=== PATIENT | female | born 1995 | race African-American/Black ===

== ENCOUNTER 2019-12-22 23:21 | Outpatient (CLI) | payer OTHER, SELFPAY ==
[2019-12-22 01:31] VITALS: BP 124/59; PULSE 99
== END 2019-12-22 23:22 | disposition home or self-care (01) ==
PROVIDERS: Visit Provider Obstetrics & Gynecology
DX: O36.8390 Maternal care for abnormalities of the fetal heart rate or rhythm, unspecified trimester, not applicable or unspecified (principal); Z3A.00 Weeks of gestation of pregnancy not specified
CPT/HCPCS: 59025

== ENCOUNTER 2020-01-14 12:16 | Inpatient (IN) | payer OTHER, SELFPAY ==
[2020-01-14] VITALS (76 sets, daily range): BP systolic 66–130; BP diastolic 38–101; PULSE 59–121; RESP 14–18; TEMP 36.2–37.1; O2SAT 95–100; BMI 36.3
--- NOTE | 2020-01-14 12:56 | LDADM ---
This patient, Kevin Paez, was admitted to Labor/Delivery/Recovery 120 on 01/14/20 at 12:16. Plans for labor, pain management and were discussed with patient. Patient/family oriented to hospital policies and general routines including ID bracelet, bed and alarms, visiting hours, pain management, procedures, bathroom and other care routines, personal items, smoking policy, room service/diet and guest tray routines, infant security routines, and visiting hours. Patient/Family are encouraged to report perceived risks to care and to ask questions if they do not understand what they are told or what they should do. See OBIX for further documentation.
[2020-01-14] MEDS: LACTATED RINGERS 1,000 ML 999 ML IV CONT (13:15)
[2020-01-14 13:24] LABS: Basophils Percent Auto 0.2 % (0.2-1.2); Eosinophils Absolute Auto 0.2 K/mm3 (0-0.3); Hematocrit 33.7 % (37.0-47.0); Hemoglobin 11.3 g/dL (12.0-15.0); Immature Granulocyte Absolute 0.07 K/mm3 (0.00-0.031); Immature Granulocyte Percent A 0.5 % (0-0.5); Lymphocytes Absolute Auto 1.92 K/mm3 (0.9-3.2); Mean Corpuscular HGB Conc 33.5 g/dl (32-36); Mean Corpuscular Hemoglobin 27.4 pg (26-34); Mean Corpuscular Volume 81.6 fl (80-100); Mean Platelet Volume 11.4 fl (7.4-10.4); Monocytes Absolute Auto 0.8 K/mm3 (0.1-0.6); Monocytes Percent Auto 5.3 % (2.6-8.5); Neutrophils Absolute Auto 11.8 K/mm3 (1.3-6.7); Platelet Count Result 256 k/mm3 (150-375); Red Blood Count 4.13 M/mm3 (4.2-5.4); Red Cell Distribution Width 13.6 % (11.5-14.5); White Blood Count 14.8 K/mm3 (4.5-10.0)
--- NOTE | 2020-01-14 13:58 | PM.IMHP ---
H&P: HPI History of Present Illness Chief complaint: Narrative: Kevin Paez is a 24 year old female G1 at term with active HSV outbreak. We agreed to proceed with delivery. No complaints. No lof, vb, contractions. Review of Systems Constitutional: Constitutional: Reports no additional constitutional complaints, Denies fatigue, Denies headache(s), Denies lethargy and Denies weakness Eyes: Eyes: Reports no additional eye complaints, Denies blurry vision and Denies photophobia ENT: Reports as per HPI, Denies headache(s) and Denies neck pain Cardiovascular: Cardiovascular: Denies chest pain, Denies diaphoresis, Denies leg edema, Denies palpitations and Denies dyspnea Respiratory: Respiratory: Denies hemoptysis, Denies dyspnea and Denies wheezing Gastrointestinal: Gastrointestinal: Denies abdominal pain, Denies melena, Denies bloating, Denies hematochezia, Denies nausea and Denies vomiting Genitourinary: Genitourinary: Reports no additional female genitourinary complaints Musculoskeletal: Musculoskeletal: Denies joint swelling, Denies neck pain, Denies numbness and Denies stiffness Neurologic: Denies Abnormal speech present, Denies confusion, Denies headache(s), Denies numbness and Denies weakness Psychiatric: Psychiatric: Denies anxiety, Denies confusion, Denies depression, Denies homicidal ideation and Denies suicidal ideation Endocrine: Endocrine: Denies fatigue and Denies palpitations Allergic/Immunologic: Allergic/Immunologic: Denies wheezing PMFSH Past Medical History Medical History (Updated 01/14/20 @ 14:00 by Gita Low MD) Asthma Family History Family History (Updated 01/10/20 @ 14:37 by Esther Montenegro RN) Other No known health problems Social History Social History Smoking status: Never smoker Substance use: never Spiritual care concerns: Yes (Requests Hospital Crutcher Helper to visit) Meds Home Medications and Allergies Home Medications Medication Instructions Recorded Confirmed Type albuterol sulfate 2 puff INHALATION Q12H 01/10/20 01/10/20 History montelukast 10 mg PO DAILY 01/10/20 01/10/20 History valacyclovir 500 mg PO DAILY 01/10/20 01/10/20 History Allergies Allergy/AdvReac Type Severity Reaction Status Date / Time cat dander Allergy Difficulty Verified 01/10/20 14:32 Breathing grass pollen Allergy Difficulty Verified 01/10/20 14:32 Breathing No Known Drug Allergies Allergy Unknown Verified 01/10/20 14:32 pollen extracts Allergy Difficulty Verified 01/10/20 14:32 Breathing Vital Signs Vital Signs - 24 hr 01/14/20 13:35 Pulse Rate 121 H Blood Pressure 130/63 Exam Const: General: healthy appearing, comfortable and no acute distress; No confusion Orientation/consciousness: No confusion Eyes: Direct Ophthalmoscopy: No photophobia Resp: Auscultation: clear to auscultation bilaterally, no rales, no rhonchi and no wheezes Cardio: Rate: regular rate Heart sounds: no click, no murmurs and no rubs GI: Inspection: non-distended GI Palp: No abdominal tenderness Auscultation: normal bowel sounds Neuro: General: No confusion Speech: No Abnormal speech present Extrem: General: normal to inspection, no pedal edema and no calf tenderness H&P: Results Labs Labs: Short CBC 01/14/20 Range/Units 13:16 WBC 14.8 H (4.5-10.0) K/mm3 Hgb 11.3 L (12.0-15.0) g/dL Hct 33.7 L (37.0-47.0) % Plt Count 256 (150-375) k/mm3 Assessment and Plan Assessment and plan (1) HSV (herpes simplex virus) anogenital infection: Code(s): A60.9 - Anogenital herpesviral infection, unspecified Status: Acute (2) Term : Code(s): Z34.90 - Encounter for supervision of normal , unspecified, unspecified trimester Status: Acute Assessment and Plan: To proceed with delivery. She understands the risk, benefit and alternative.
[2020-01-14] MEDS: KETOROLAC 30 MG/ML VIAL (*BKC) IV PUSH ×2 (14:26→20:25)
--- NOTE | 2020-01-14 14:28 | PM.PROC ---
Procedure Note - Detailed Date of procedure: 01/14/20 Pre-op diagnosis: Term gestation, Active Genital Herpes Outbreak Post-op diagnosis: same Procedure performed: low-transverse delivery Description of procedure: The patient was taken the operating room. She was prepped and draped in the dorsal supine position with leftward tilt after induction of spinal anesthetic. When anesthesia was found to be adequate a low-transverse skin incision was made and carried down to the level the fascia with the knife. The fascial incision was made at the midline with a scalpel. The fascial incision was extended laterally with Tapia scissors. The fascia was tented upward superior and inferior with Lelia clamps. The rectus muscles were dissected off bluntly. The rectus muscles at the midline. The preperitoneal fat was dissected bluntly at the superior aspect of the separate the rectus muscles. The peritoneal cavity was entered bluntly in the same area. The peritoneal incision was extended superior and inferior with good visualization of bladder. Bladder blade was inserted. A low-transverse incision was made on the uterus with the scalpel. It was carried down the level of the amniotic cavity with a knife. The amniotic cavity bluntly. The uterine incision was made laterally with blunt traction. The infant was delivered. The cord was clamped and cut. The infant was handed off to waiting pediatric staff. Cord bloods were obtained. The placenta was removed manually. The uterus was exteriorized. Uterus cleared of all clots and debris. Uterus closed in 0 Vicryl in a running locked fashion. An imbricating layer of 0 Vicryl was also placed on the to bolster the closure. The uterus was returned to the abdomen. The gutters were cleared of all clots and debris. The fascia was closed 0 Vicryl in a running fashion. Subcutaneous tissue was irrigated and bleeding areas were cauterized. The skin was closed with subcuticular absorbable roger. The incision was covered with derma brown. The patient tolerated the procedure well. She was taken recovery room stable condition. Sponge, lap, needle counts were correct x2. Anesthesia: spinal Surgeon: Gita Low MD Estimated blood loss (mL): 240 Drains: No Packing: No Pathology: none sent Complications: No immediate complications Condition: stable Disposition: floor Findings: Normal maternal anatomy. Average size infant with normal Apgars.
[2020-01-14] MEDS: OXYTOCIN 30 UNITS/NS 500 ML 30 UNITS/500 ML BAG 125 UNITS IV CONT (15:41)
--- NOTE | 2020-01-14 16:49 | PC.NURSE ---
Patient transferred to post room # 290 via stretcher and transferred to bed via maxi air without difficulty. No Support person present. Oriented to unit, room, information board, rooming in, admission packet and security measures. Patient verbalizes understanding.
[2020-01-14] MEDS: ACETAMINOPHEN 325 MG TABLET 650 MG PO (17:41)
[2020-01-14] MEDS: DEXTROSE 5%/0.45% SOD CHL 1,000 ML 125 ML IV CONT (20:13)
[2020-01-14] MEDS: ONDANSETRON INJ 4 MG/2 ML VIAL IV PUSH (20:23)
[2020-01-14] MEDS: ALBUTEROL SULFATE (*SP) AEROSOL 1 PUFF 2 PUFF INHALATION (22:15)
[2020-01-15] VITALS (7 sets, daily range): BP systolic 99–112; BP diastolic 49–60; PULSE 66–87; RESP 16–18; TEMP 36.7–36.8; O2SAT 98–100
[2020-01-15] MEDS: KETOROLAC 30 MG/ML VIAL (*BKC) IV PUSH ×2 (02:24→08:45)
[2020-01-15] MEDS: ONDANSETRON INJ 4 MG/2 ML VIAL IV PUSH (02:25)
[2020-01-15] MEDS: diphenhydrAMINE HCl INJ 50 MG/ML VIAL 25 MG IV PUSH (02:39)
[2020-01-15] MEDS: KCL 20 MEQ/D5/0.45% SOD CHL 1,000 ML 125 ML IV CONT (04:35)
[2020-01-15 05:29] LABS: Basophils Percent Auto 0.2 % (0.2-1.2); Eosinophils Absolute Auto 0.1 K/mm3 (0-0.3); Eosinophils Percent Auto 0.4 % (0-4.4); Hematocrit 28.5 % (37.0-47.0); Hemoglobin 9.4 g/dL (12.0-15.0); Immature Granulocyte Absolute 0.13 K/mm3 (0.00-0.031); Immature Granulocyte Percent A 0.7 % (0-0.5); Lymphocytes Absolute Auto 1.34 K/mm3 (0.9-3.2); Lymphocytes Percent Auto 7.2 % (18.3-44.2); Mean Corpuscular Hemoglobin 27.1 pg (26-34); Mean Corpuscular Volume 82.1 fl (80-100); Monocytes Absolute Auto 1.4 K/mm3 (0.1-0.6); Monocytes Percent Auto 7.3 % (2.6-8.5); Neutrophils Absolute Auto 15.8 K/mm3 (1.3-6.7); Neutrophils Percent Auto 84.2 % (45.5-73.1); Platelet Count Result 262 k/mm3 (150-375); Red Blood Count 3.47 M/mm3 (4.2-5.4); Red Cell Distribution Width 13.1 % (11.5-14.5); White Blood Count 18.7 K/mm3 (4.5-10.0)
--- NOTE | 2020-01-15 07:30 | PC.NURSE ---
PT introductions made and plan of care discussed per post op c section, pain management, breast/bottle feeding, daily care activities. PT verbalized understanding of such care.
--- NOTE | 2020-01-15 07:50 | PM.OBPNVD ---
OB - PN: Subj Subjective Date/time seen: 01/15/20 07:50 Patient comments: no complaints, pain well controlled, tolerating diet and flatus present OB - PN: Obj Data Labs CBC & Chem 7: 01/15/20 04:39 Labs: Laboratory Results - last 24 hr 01/14/20 01/14/20 01/15/20 13:16 13:16 04:39 WBC 14.8 H 18.7 H RBC 4.13 L 3.47 L Hgb 11.3 L 9.4 L Hct 33.7 L 28.5 L MCV 81.6 82.1 MCH 27.4 27.1 MCHC 33.5 33.0 RDW 13.6 13.1 Plt Count 256 262 MPV 11.4 H 11.0 H Immature Gran % (Auto) 0.5 0.7 H Neut % (Auto) 80.0 H 84.2 H Lymph % (Auto) 13.0 L 7.2 L [place] % (Auto) 5.3 7.3 Eos % (Auto) 1.0 0.4 Baso % (Auto) 0.2 0.2 Lymph # (Auto) 1.92 1.34 [place] # (Auto) 0.8 H 1.4 H Eos # (Auto) 0.2 0.1 Baso # (Auto) 0.0 0.0 Abs Immat Gran (auto) 0.07 H 0.13 H Absolute Neuts (auto) 11.8 H 15.8 H Absolute Nucleated RBC 0.0 0.0 Nucleated RBC % 0.0 0.0 Blood Type O Positive Antibody Screen Negative OB - PN A/P Plan day: 1 Comments: Post Op LTCS - no problems, routine recovery Time Spent With Patient Time: Total time spent is greater than 50% in coordination of care (as documented) at patient's floor/unit and/or counseling patient: Exam Const: General: cooperative, healthy appearing, comfortable and no acute distress Resp: Auscultation: no crackles, no rales, no rhonchi and no wheezes Cardio: Rhythm: regular rhythm Heart sounds: no click and no murmurs GI: Inspection: non-distended Auscultation: normal bowel sounds Extrem: General: normal to inspection, no pedal edema and no calf tenderness
--- NOTE | 2020-01-15 07:58 | WPDANLDPN2 ---
Anes-Prog Note L&D Date/Time: 01/15/20 07:58 Comfortable throughout: section Neuraxial method: spinal Epidural/Spinal procedure site: clean & non-tender Neuro status: Neuro function grossly intact. Cardiovascular status: normal Respiratory status: normal Airway patency: baseline Mental status: baseline Post-Op hydration status: normal Vital Signs: Last Vital Signs Temp 36.8 C 01/15/20 04:42 Pulse 66 01/15/20 04:44 Resp 16 01/15/20 04:44 BP 100/54 L 01/15/20 04:42 Pulse Ox 100 01/15/20 04:44 I/O: Intake & Output 01/14/20 01/14/20 01/15/20 15:59 23:59 07:59 Intake Total 1000 90 100 Output Total 627 222 Balance 8176 -169 -690 Post-procedural complaints: none Patient feedback: Patient satisfied with anesthetic care.
--- NOTE | 2020-01-15 07:59 | WPDANLDNPN2 ---
Anes-Prog Note L&D-Neuraxial Date/Time: 01/15/20 07:59 Neuraxial medications: intrathecal PF morphine Opiod-related complaints: none Patient feedback: Patient satisfied with post-operative pain management.
[2020-01-15] MEDS: valACYclovir HCL 500 MG TABLET PO ×2 (08:42→21:34)
[2020-01-15] MEDS: MULTIVIT/MIN/PREN/FOL AC/IRON TABLET 1 TAB PO (08:42)
[2020-01-15] MEDS: MONTELUKAST SODIUM 10 MG TABLET PO (08:42)
[2020-01-15] MEDS: DOCUSATE SODIUM 100 MG CAPSULE PO ×2 (08:43→16:38)
[2020-01-15] MEDS: SIMETHICONE 80 MG TAB.CHEW PO ×3 (08:43→16:37)
[2020-01-15] MEDS: POLYSACCHARIDE IRON COMPLEX 150 MG CAPSULE PO ×2 (08:43→16:37)
[2020-01-15 09:01] LABS: Rapid Plasma Reagin Non-Reactive (NonReactive)
[2020-01-15] MEDS: diphenhydrAMINE HCl CAP 25 MG CAPSULE PO (09:07)
--- NOTE | 2020-01-15 09:30 | PC.NURSE ---
Primary RN requested observation of latch. Infant was latched correctly nursing eagerly with long draws. Mother has is cross cradle holding breast, discussed the importance of holding breast and good positioning/alignment. Reviewed feeding cues, frequencies, duration of feedings, feeding elimination flow sheet, and signs of adequate intake. Demonstrated how to adjust latch more deeply while feeding. Suggested mother stimulate infant while feeding to keep infant awake and nursing effectively for increased intake and to assist with maintaining deep latch. Mother states she plans to breast and bottle feed. Discussed milk supply and stimulation to assist with increasing supply. Instructed mother to call out for RN assistance if she is unable to latch for feeding or she has discomfort with nursing. Instructed feeding should be initiated three hours from start of last feeding or if feeding cues are noted before. Mother voiced understanding of information shared.
[2020-01-15] MEDS: IBUPROFEN 600 MG TABLET PO ×2 (16:38→23:21)
[2020-01-15] MEDS: ALBUTEROL SULFATE (*SP) AEROSOL 1 PUFF 2 PUFF INHALATION (17:18)
--- NOTE | 2020-01-16 04:27 | PCRCNOTE ---
Window of time for administration has passed. See next scheduled administration.
[2020-01-16] MEDS: IBUPROFEN 600 MG TABLET PO ×3 (05:18→20:46)
[2020-01-16] MEDS: ALBUTEROL SULFATE (*SP) AEROSOL 1 PUFF 2 PUFF INHALATION ×2 (09:07→20:57)
[2020-01-16] MEDS: MULTIVIT/MIN/PREN/FOL AC/IRON TABLET 1 TAB PO (09:43)
[2020-01-16] MEDS: DOCUSATE SODIUM 100 MG CAPSULE PO ×2 (09:43→16:50)
[2020-01-16] MEDS: MONTELUKAST SODIUM 10 MG TABLET PO (09:43)
[2020-01-16] MEDS: valACYclovir HCL 500 MG TABLET PO ×2 (09:43→20:48)
[2020-01-16] MEDS: POLYSACCHARIDE IRON COMPLEX 150 MG CAPSULE PO ×2 (09:44→16:50)
[2020-01-16 09:45] VITALS: BP 106/69; PULSE 78; RESP 18; TEMP 36.6; O2SAT 100
--- NOTE | 2020-01-16 14:00 | PM.OBPNVD ---
OB - PN: Subj Subjective Date/time seen: 01/16/20 14:00 Patient comments: no complaints, pain well controlled, incisional pain, tolerating diet and flatus present OB - PN: Obj Data Labs CBC & Chem 7: 01/15/20 04:39 OB - PN A/P Plan day: 2 Plan: routine care Comments: POD#2 LTCS - no problems, Time Spent With Patient Time: Total time spent is greater than 50% in coordination of care (as documented) at patient's floor/unit and/or counseling patient: Exam Const: General: comfortable, no acute distress and alert Resp: Effort & Inspection: normal respiratory effort Auscultation: no crackles, no rales and no rhonchi Cardio: Rate: regular rate Heart sounds: no click, no murmurs and no rubs GI: Inspection: non-distended GI Palp: No Tenderness to palpation present (GI) Auscultation: normal bowel sounds Other: Incision - CDI Extrem: General: normal to inspection, no pedal edema and no calf tenderness
[2020-01-16 20:30] VITALS: BP 133/61; PULSE 80; RESP 18; TEMP 36.9
[2020-01-16] MEDS: SIMETHICONE 80 MG TAB.CHEW PO (20:47)
--- NOTE | 2020-01-17 04:04 | PC.NURSE ---
01/16/2020 at 2000. While doing mother's and baby's assessments I began talking to mother regarding her herpes. I really don't want to talk about that right now... , so I dropped the topic. I also asked Pedro, baby's mother if I could change her bed when she gets up. Oh not right now. I then asked mother to call out the next times she is OOB and I will then change the linens on the bed. Thus far as of this note entry the patient has not call out (01/17/2020 at 0355). 01/17/2020 at approximately 0130 I entered mother's room and again began talking about mother's herpes outbreak. I discussed with the patient the high importance of observing excellent hand washing and the need if in the future she notices a breakout the need to call her Dr. immediately and get a prescription for the outbreak. I told mother it is possible for her to transmit the herpes to baby. I continued to discuss with mother to be on the lookout in baby for poor feedings, lethargy, and neurological problems such as jerk or twitches, which could be seizures in baby. I told mother ANYTHING out of the ordinary she needs to call the doctor and report the findings. I explained and stressed to mother if she has ANY CONCERNS or anything out of the norm with baby she should consult baby's doctor at once. Mother states understanding.
[2020-01-17] MEDS: SIMETHICONE 80 MG TAB.CHEW PO (05:12)
[2020-01-17] MEDS: IBUPROFEN 600 MG TABLET PO ×2 (05:12→14:08)
--- NOTE | 2020-01-17 06:12 | PC.NURSE ---
0510 on 01/17/2020 I entered mother's room and noticed mother asleep with baby in her arms. I again asked mother to not sleep with baby in her bed and when she gets sleepy to put baby in his crib. Mother stated understanding and I put baby in his crib next to mother's bed.
[2020-01-17 07:15] VITALS: BP 119/63; PULSE 84; RESP 16; TEMP 36.5; O2SAT 100
[2020-01-17] MEDS: ALBUTEROL SULFATE (*SP) AEROSOL 1 PUFF 2 PUFF INHALATION ×2 (08:59→19:04)
[2020-01-17] MEDS: DOCUSATE SODIUM 100 MG CAPSULE PO ×2 (09:37→17:32)
[2020-01-17] MEDS: POLYSACCHARIDE IRON COMPLEX 150 MG CAPSULE PO ×2 (09:37→17:32)
[2020-01-17] MEDS: MULTIVIT/MIN/PREN/FOL AC/IRON TABLET 1 TAB PO (09:37)
[2020-01-17] MEDS: MONTELUKAST SODIUM 10 MG TABLET PO (09:38)
[2020-01-17] MEDS: valACYclovir HCL 500 MG TABLET PO ×2 (09:38→22:20)
--- NOTE | 2020-01-17 12:27 | PM.OBPNVD ---
OB - PN: Subj Subjective Date/time seen: 01/17/20 12:27 Patient comments: no complaints, pain well controlled, incisional pain, tolerating diet and flatus present OB - PN: Obj Data Labs CBC & Chem 7: 01/15/20 04:39 OB - PN A/P Plan day: 3 Plan: routine care and other Comments: Incision check in one week. Given precautions Time Spent With Patient Time: Total time spent is greater than 50% in coordination of care (as documented) at patient's floor/unit and/or counseling patient: Exam Const: General: comfortable, no acute distress and alert Resp: Effort & Inspection: normal respiratory effort Auscultation: no crackles, no rales and no rhonchi Cardio: Rate: regular rate Heart sounds: no click, no murmurs and no rubs GI: Inspection: non-distended GI Palp: No Tenderness to palpation present (GI) Auscultation: normal bowel sounds Other: Incision - CDI Extrem: General: normal to inspection, no pedal edema and no calf tenderness
--- NOTE | 2020-01-17 16:51 | PC.NURSE ---
Spoke with Jess in Care Coordination, reminded of Consult order on 02-15-20. Reviewed with Jess pt's stated needs of possibly a bed for baby. Someone from Care Coordination will see pt in the morning, 01-18-20.
--- NOTE | 2020-01-17 17:02 | PC.NURSE ---
1430 Mother watched the discharge DVD.
[2020-01-17 20:00] VITALS: BP 126/63; PULSE 73; RESP 18; TEMP 36.6; O2SAT 100
[2020-01-18 08:00] VITALS: BP 112/63; PULSE 73; RESP 18; TEMP 36.6; O2SAT 100
--- NOTE | 2020-01-18 08:09 | PM.OBPNVD ---
OB - PN: Subj Subjective Date/time seen: 01/18/20 08:09 OB - PN: Obj Data Labs CBC & Chem 7: 01/15/20 04:39 OB - PN A/P Plan day: 4 Plan: routine care and discharge home (Follow up at 1 week post op.) Comments: [facility] if not discharged. Time Spent With Patient Time: Total time spent is greater than 50% in coordination of care (as documented) at patient's floor/unit and/or counseling patient: Time with patient: less than 15 minutes Review of Systems Review of Systems: All systems reviewed & are unremarkable except as noted in HPI and below Exam Narrative: Exam Narrative: Fundus firm and vaginal flow controlled. No redness, warmth, or tenderness of lower ext. Negative homans. Const: General: comfortable Chest: Breast/axilla inspection: normal inspection of the breasts Resp: Effort & Inspection: normal respiratory effort Cardio: Rate: regular rate GI: Auscultation: normal bowel sounds Psych: Appearance: grossly normal Affect: normal affect Attitude: cooperative Judgement: Good judgement present (Psych)
[2020-01-18] MEDS: SIMETHICONE 80 MG TAB.CHEW PO ×2 (08:29→17:10)
[2020-01-18] MEDS: POLYSACCHARIDE IRON COMPLEX 150 MG CAPSULE PO ×2 (08:29→17:09)
[2020-01-18] MEDS: MULTIVIT/MIN/PREN/FOL AC/IRON TABLET 1 TAB PO ×2 (08:29→17:10)
[2020-01-18] MEDS: IBUPROFEN 600 MG TABLET PO ×2 (08:29→14:05)
[2020-01-18] MEDS: DOCUSATE SODIUM 100 MG CAPSULE PO ×2 (08:30→17:10)
[2020-01-18] MEDS: valACYclovir HCL 500 MG TABLET PO (08:31)
[2020-01-18] MEDS: MONTELUKAST SODIUM 10 MG TABLET PO (08:31)
[2020-01-18] MEDS: ALBUTEROL SULFATE (*SP) AEROSOL 1 PUFF 2 PUFF INHALATION (10:00)
--- NOTE | 2020-01-18 12:30 | PC.NURSE ---
Consult with pt., mother has been bottle feeding for most feedings. Mother has a pump at bedside and has not been pumping regularly. Discussed the importance of stimulation for increased milk supply. Mother states she has not had time. Offered assist with latching infant before discharge. Mother states she will continue to formula feed and will initiate pumping once at home. Assisted mother with a pump thru her insurance.
--- NOTE | 2020-01-18 13:02 | PC.NURSE ---
Patient viewed the discharge video Mother & Baby Care, The First Two Weeks . Patient was given the opportunity and encouraged to ask questions. Patient verbalized understanding of information shared and has been given the mother/baby guide for home reference.
--- NOTE | 2020-01-18 13:02 | PC.NURSE ---
Self care and infant care discharge instructions given including follow up visit date and time. Pt. verbalized understanding. No questions or concerns noted. Anxious to be taking home. States she will be going too her mother's house with baby for awhile.
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
[2020-01-18] MEDS: ACETAMINOPHEN 325 MG TABLET 650 MG PO (14:06)
--- NOTE | 2020-02-14 19:57 | PM.OBDSVD ---
DS: Admitting Diagnosis Admitting Diagnosis Admitting Diagnosis: DS: Discharge Diagnosis Discharge Diagnosis (1) delivery delivered: Code(s): O82 - Encounter for delivery without indication Status: Acute (2) HSV (herpes simplex virus) anogenital infection: Code(s): A60.9 - Anogenital herpesviral infection, unspecified Status: Acute OB - DS: Summary OB Procedures : None OB Procedures Intrapartum: OB Procedures: : None Peripartum Data Delivery Method: Section Procedures: Procedures Operation Date: 01/14/20 12:00 Actual Procedures Side Surgeon p Primary Section Gita Low MD complications: none Status at Discharge Functional status at discharge: independent ambulation Time Spent with Patient Time attestation: Total time spent providing and/or coordinating discharge services: Discharge Plan Discharge Attending physician on discharge: Gita Low Consulting providers: Bethany Roche Discharging Clinician: Bethany Roche Patient Disposition: Home, Self-Care Activity: pelvic rest Diet: as tolerated Wound Care Instructions: follow printed instructions Discharge Instructions: Education: Mom and Baby Guide Given to: Mother Follow-Up: Call your delivering provider's office for an appointment to be seen in: 1 Week [facility] follow[facility]up appointment. Appointment Date/Time: January 19, 2020 at 9:00 am What to expect at your follow-up visit: Blood Pressure Check Physical Assessment Call [phone] if you are unable to keep your appointment time. BREAST CARE: * Wear a snug supportive bra. * For engorgement discomfort: Breast Feeding: * Apply warm moist washcloths * Express milk as needed to relieve engorgement * Wear loose clothing Bottle Feeding: * May apply ice packs * For sore nipples: * Identify correct latch-on * Apply warm moist washcloths before and after nursing * Air dry nipples after nursing * May apply Lansinoh cream to nipples ABDOMINAL INCISION: (if applicable) * Allow incision to air dry * Do NOT use lotions for powders on your incision * When showering, allow soap and water to run over the incision, but do not wash incision EPISIOTOMY/PERINEAL CARE: * Until bleeding stops, use your katerina bottle after urinating * Change your pad frequently throughout the day * You may take sitz baths several times a day (fill your bathtub with warm water and soak for 20 minutes.) Do NOT bathe in the water * No tub baths until seen by your physician - You may shower ACTIVITY: * Rest as much as possible. * Do not exercise or lift anything heavier than your baby (such as laundry or other children.) * Avoid stairs or driving as much as possible. * Do not put anything into the vagina. No douching, tampons, or sexual activity until seen by physician. NOTIFY PHYSICIAN IF YOU HAVE ANY QUESTIONS OR IF ANY OF THE FOLLOWING SYMPTOMS OCCUR: * If your incision becomes red, swollen, or more painful than what you have experienced in the hospital. * If your vaginal bleeding becomes foul smelling. * If your vaginal bleeding becomes more heavy than a period or if your bleeding changes from pink to bright red. However, you may pass an occasional walnut-sized clot once or twice for the first week . * If you experience a sharp, shooting pain in you calves. * If you discover a hard, reddened area on your breast or if you experience flu-like symptoms. DIET: * Eat regular, well-balanced meals. * Drink plenty of fluids daily. If , drink to thirst. Patient Instructions: Antibiotic Form Stand Alone Forms: General Discharge Information Follow-up/Referrals: Gita Low MD [Physician] - Dischar
== END 2020-01-18 18:55 | disposition home or self-care (01) | DRG 540 ==
LOC: ANHLDR 12:29 → ANHOB2 16:58
PROVIDERS: Admitting Provider Obstetrics & Gynecology; Visit Provider Obstetrics & Gynecology
PROC: 10D00Z1 Extraction of Products of Conception, Low, Open Approach (ICD-10-PCS; CPT 59514; principal; 2020-01-14 12:00)
DX: O98.313 Other infections with a predominantly sexual mode of transmission complicating pregnancy, third trimester (principal); Z37.0 Single live birth; Z3A.39 39 weeks gestation of pregnancy; A60.9 Anogenital herpesviral infection, unspecified; O99.52 Diseases of the respiratory system complicating childbirth; J45.909 Unspecified asthma, uncomplicated
CPT/HCPCS: 36415; 85025; 86592; 86850; 86900; 86901; 94640; A9270; J1200; J1885; J2274; J2405; J2590; J3480; J7120

== ENCOUNTER 2023-12-25 14:05 | Emergency (ER) | payer OTHER, SELFPAY ==
[2023-12-25] VITALS (8 sets, daily range): BP systolic 129–158; BP diastolic 63–82; PULSE 90–104; RESP 18–20; TEMP 37.2; O2SAT 99–100
--- NOTE | ~2023-12-25 | XR_ITS ---
EXAMINATION: XR chest 2V DATE: 12/25/2023 15:18 INDICATION: Shortness of breath. TECHNIQUE: Frontal and lateral views of the chest were obtained. COMPARISON: None. FINDINGS: There is no pneumonia, pleural effusion, or pneumothorax. The heart size is normal. IMPRESSION: 1. No acute cardiopulmonary disease. Reviewed, dictated and finalized at location E.
--- NOTE | 2023-12-25 14:16 | ECG_ITS ---
Test Date: 2023-12-25 14:26:52 Measurements Intervals [place] Rate: 101 P: 47 MD: 145 QRS: 72 QRSD: 78 T: 0 QT: 360 QTc: 468 Interpretive Statements SINUS TACHYCARDIA POSSIBLE LEFT ATRIAL ENLARGEMENT NONSPECIFIC ST-T WAVE ABNORMALITY- ANTEROLAT/INF LEADS BASELINE ARTIFACT- V1, V4-V6 BORDERLINE ECG No previous ECG available for comparison Electronically Signed On 12-25-2023 14:59:20 CDT by Claudio Koroma D.O.
--- NOTE | 2023-12-25 14:30 | ED.ASTHMA ---
HPI - Asthma General Chief Complaint: Asthma Stated Complaint: asthma attack Time Seen by Provider: 12/25/23 14:28 History of Present Illness HPI Narrative: Patient is a 28-year-old female with history of asthma here with shortness of breath and chest tightness. She states that she felt like her normal self when she went to work today until about 11:00 a.m.. 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 She then began having chest tightness and significant shortness of breath. She states that she ran out of her albuterol inhaler and was unable to take it. she had EMS called and she did receive a breathing treatment EN route. She noted significant improvement in her chest tightness and shortness of breath however it does continue to be present at a mild degree. She does note about a month ago she was treated for pneumonia, had felt well and recovered after antibiotic treatment. She has been hospitalized in the past for her asthma, has never been intubated, she did require chest tube placement due to pneumothorax when she was 5 years old. She denies possibility of being , just finished her menstrual cycle. No prior history of PE or DVT, no leg swelling, no calf pain. Related Data Home Medications Medication Instructions Recorded Confirmed albuterol sulfate 90 mcg/actuation 2 puff inhalation Q12H 01/10/20 01/10/20 aerosol inhaler montelukast 10 mg tablet 10 mg PO DAILY 01/10/20 01/10/20 valacyclovir 500 mg tablet 500 mg PO DAILY 01/10/20 01/10/20 Allergies Allergy/AdvReac Type Severity Reaction Status Date / Time cat dander Allergy Difficulty Verified 01/10/20 14:32 Breathing grass pollen Allergy Difficulty Verified 01/10/20 14:32 Breathing No Known Drug Allergies Allergy Unknown Verified 01/10/20 14:32 pollen extracts Allergy Difficulty Verified 01/10/20 14:32 Breathing Review of Systems Review of Systems: All systems reviewed & are unremarkable except as noted in HPI and below PMFSH Past Medical History Medical History (Updated 12/25/23 @ 16:46 by Francine Pierce MD) Asthma Family History Family History (Updated 01/10/20 @ 14:37 by Esther Montenegro RN) Other No known health problems Social History Social History Smoking status: Never smoker Substance use: never Spiritual care concerns: Yes (Requests [facility] to visit) Exam Narrative: GENERAL: Well-appearing, well-nourished, and in no acute distress. HEAD: Normocephalic, atraumatic. EYES: PERRLA and EOMI. ENT: Nares clear. Mucous membranes moist. NECK: Supple. CHEST: Faint wheeze bilaterally. No respiratory distress. HEART: Regular rate and rhythm. Normal peripheral pulses. ABDOMEN: Soft, nontender, nondistended. EXTREMITIES: Normal range of motion. No edema. SKIN: Warm, dry, no rash. NEURO: No focal deficits. Alert and oriented x3. PSYCH: Normal mood and affect. Course Course Emergency Course: Chart review performed, patient here from local warehouse for shortness of breath and chest tightness while working. History of asthma, EMS gave Duo[facility] EN route with improvement of symptoms. Triage vitals show tachycardia, hypertension, otherwise within normal limits. No visits in our system since related visits in 2019. patient seen evaluated, no respiratory distress, able to speak full sentences at this time. She does continue to have wheeze on exam, will give steroids and breathing treatment. Will additionally do chest x-ray given she has a recent history of pneumonia. Patient agreeable to workup and plan. Chest x-ray negative. Patient re-evaluated, feeling quite a bit better after breathing treatment. Requesting to be checked for urinary tract infection. She states she has had some increased urinary frequency. Will send UA. No UTI on UA. Patient will be started on steroids and given a refill for albuterol inhaler. The results of pertinent d
[2023-12-25] MEDS: IPRATROPIUM BR 0.02% INH SOLN 0.5 MG/2.5 ML VIAL INHALATION (15:20)
[2023-12-25] MEDS: ALBUTEROL SULFATE NEB 2.5 MG/3 ML INH 10 MG INHALATION (15:20)
[2023-12-25] MEDS: methylPREDNISolone SOD SUCC 125 MG VIAL IV PUSH (15:41)
[2023-12-25 16:23] LABS: Appearance Urine Clear (Clear); Bilirubin Urine Negative (Negative); Blood Urine Negative (Negative); Color Urine Yellow (Yellow); Glucose Urine UA Negative (Negative); Ketones Urine Negative (Negative); Leukocyte Esterase Ur Negative LEU/UL (Negative); Nitrate Urine Negative (Negative); Protein Urine Negative (Negative); Specific Grav Ur 1.013 (1.001-1.035); Urobilinogen Urine 0.2 mg/dL (<2.0)
[2023-12-25 16:28] LABS: Add Urine Microscopic? NO
== END 2023-12-25 16:59 | disposition home or self-care (01) ==
PROVIDERS: Emergency Provider Student in an Organized Health Care Education/Training Program
DX: J45.901 Unspecified asthma with (acute) exacerbation (principal)
CPT/HCPCS: 71046; 81003; 93005; 94640; 96374; 99284; J2919